=== PATIENT | female | born 1995 | race Caucasian/White ===

== ENCOUNTER 2018-05-23 05:58 | Emergency (ER) | payer OTHER ==
[~2018-05-23] VITALS: Ht 167.6 cm; Wt 77.1 kg
--- NOTE | ~2018-05-23 | EKG ---
[place], [place] ELECTROCARDIOGRAM REPORT NAME: CHASE OSUNA V UNIT #: [id number] ROOM: DOCTOR: EPIPHANY DRAFT REPORT BIRTHDATE: [birth year] [facility] Test Date: 2018-05-23 Test Time: 06:07:53 Pat Name: CHASE OSUNA Department: Room: Gender: F Nut Chopper: Kyung Buenrostro : 1995 Requested By: BUCK NOVA Order Number: [id number] Reading MD: Emmanuelle Fulton MD Measurements Intervals [place] Rate: 84 P: 44 [place]: 126 QRS: 22 QRSD: 72 T: 72 QT: 468 QTc: 554 Interpretive Statements Sinus rhythm Borderline abnrm T, anterolateral leads Prolonged QT interval Electronically Signed On 05-23-2018 14:09:32 PDT by Emmanuelle Fulton MD CM:EKGRPT:ELECTROCARDIOGRAM REPORT [id number] BUCK FLORES DRAFT REPORT BUCK NOVA DO
--- NOTE | ~2018-05-23 | EKG ---
[place], [place] ELECTROCARDIOGRAM REPORT NAME: CHASE OSUNA V UNIT #: [id number] ROOM: DOCTOR: EPIPHANY DRAFT REPORT BIRTHDATE: [birth year] [facility] Test Date: 2018-05-23 Test Time: 08:25:56 Pat Name: CHASE OSUNA Department: Room: Gender: F Custom Studio Coordinator: LAUREN : 1995 Requested By: BUCK NOVA Order Number: [id number] Reading MD: Emmanuelle Fulton MD Measurements Intervals [place] Rate: 66 P: 41 NE: 136 QRS: 39 QRSD: 78 T: 67 QT: 404 QTc: 424 Interpretive Statements Sinus rhythm The ECG is normal. Electronically Signed On 05-23-2018 14:09:52 PDT by Emmanuelle Fulton MD CM:EKGRPT:ELECTROCARDIOGRAM REPORT [id number] BUCK FLORES DRAFT REPORT BUCK NOVA DO
[~2018-05-23 05:58] MED LIST: MACROBID100 M1 PO; PRENATAL1 TA3 PO
[2018-05-23] MEDS ORDERED: NEXPLANON68 M2 SQ (06:11)
[2018-05-23 06:28] LABS: BASO # 0.1 10*3/uL (0.0-0.1); BASO % 0.8 % (0.0-1.0); EOS # 0.2 10*3/uL (0.0-0.4); HEMATOCRIT 40.8 % (37.0-47.0); HEMOGLOBIN 14.4 g/dl (12.0-16.0); LYMPH # 2.1 10*3/uL (1.3-4.4); LYMPH % 35.7 % (27.0-41.0); MEAN CELL VOLUME 89.5 fl (81.0-99.0); MEAN CORPUSCULAR HGB 31.6 pg (27.0-31.0); MEAN CORPUSCULAR HGB CONC 35.3 g/dl (33.0-37.0); MEAN PLATELET VOLUME 10.1 fl (9.6-12.3); MONO # 0.8 10*3/uL (0.1-1.0); MONO % 13.7 % (3.0-9.0); NEUT # 2.8 10*3/uL (2.3-7.9); NEUT % 46.6 % (47.0-73.0); PLATELET COUNT AUTOMATED 232 10*3/uL (130-400); RED BLOOD COUNT 4.56 10*6/uL (4.10-5.10); RED CELL DISTRI WIDTH 12.2 % (0-14.5)
[2018-05-23 06:41] LABS: ACT PARTIAL THROMBO TIME 24.2 SECONDS (20.8-31.5); INTERNATIONAL NORM RATIO 0.9 (2.0-3.5)
[2018-05-23 06:46] LABS: ALBUMIN 3.9 gm/dl (3.1-4.5); ALKALINE PHOSPHATASE 77 U/L (45-117); BUN 9 mg/dl (7-24); CHLORIDE 106 mmol/L (98-107); CREATININE 0.66 mg/dL (0.55-1.02); POTASSIUM 3.7 mmol/L (3.5-5.1); SGOT/AST 18 IU/L (3-35); SGPT/ALT 20 U/L (12-78); SODIUM 140 mmol/L (136-145)
[2018-05-23 06:48] LABS: TROPONIN I < 0.015 ng/ml (<0.045)
== END 2018-05-23 10:53 | disposition home or self-care (01) ==
LOC: ED 05:58
PROVIDERS: Emergency Medicine
DX: R07.9 Chest pain, unspecified (principal)